=== PATIENT | male | born 1995 | race Caucasian/White ===

== ENCOUNTER 2020-06-22 18:32 | Emergency (ER) | payer OTHER ==
[~2020-06-22] VITALS: Ht 170.2 cm; Wt 71.7 kg
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
[2020-06-22] MEDS ORDERED: IBUP-1953 PO (18:57)
[2020-06-22] MEDS ORDERED: IBUPROFEN 400 MG TABLET ONE (18:58)
[2020-06-22] MEDS ORDERED: IBUPROFEN 400 MG TABLET PO ONE (19:00)
[2020-06-22 19:02] VITALS: BP 128/77
--- NOTE | 2020-06-22 19:03 | NUR ---
Patient discharged to home in stable condition. Written and verbal after care instructions given. Patient verbalizes understanding of instruction.
== END 2020-06-22 19:03 | disposition home or self-care (01) ==
LOC: ER 18:38
DX: S09.8XXA Other specified injuries of head, initial encounter (principal); R07.81 Pleurodynia; V49.49XA Driver injured in collision with other motor vehicles in traffic accident, initial encounter; Y93.89 Activity, other specified; Y92.488 Other paved roadways as the place of occurrence of the external cause; Y99.8 Other external cause status